=== PATIENT | female | born 1985 | race African-American/Black ===

== ENCOUNTER 2016-09-18 03:02 | Emergency (ER) | payer OTHER ==
--- NOTE | ~2016-09-18 | US67 ---
[facility] A Service of [facility] & [facility] / [facility] RADIOLOGY TEXT RESULTS PATIENT: TEZ MILLIGAN LOCATION: [facility] : [birth year] UNIT #: [id number] AGE: [address]: Umer Diaz MD SEX: F ORDER DR: [id number] [facility] [address] [place], [place] [address] [id number] E MR#: [id number] Acc #: [id number] NAME: TEZ MILLIGAN : 1985 SEX: F STUDY DATE/TIME: 09/18/2016 7:43 UNIT: [facility] ROOM: STUDY DESCRIPTION: Gallbladder Attending Physician: Umer Diaz M.D. Ordering Physician: Edson Friedman Aprn Primary Care Physician: Primary Care Physician No MEDICAL IMAGING REPORT This report is preliminary unless electronic signature is present EXAM Gallbladder ultrasound HISTORY Pain since this morning. Pain localized to right upper quadrant. Right upper quadrant ultrasound performed. Comparison to a CT examination from earlier on same date. Pancreas poorly visualized secondary to overlying bowel gas obscuration. The pancreas appeared unremarkable on earlier CT examination. The liver appears within normal limits of size, contour and echotexture. The portal vein is patent with normal direction of flow. Liver measures about 15.17 cm in craniocaudal extent. The right kidney measures 10.05 cm in greatest length. There is no hydronephrosis or nephrolithiasis. No cystic or solid mass lesion and no perinephric fluid collection suggested. The gallbladder contains multiple shadowing gallstones. No pericholecystic fluid or gallbladder wall thickening suggested. The common bile duct measures 4 mm in diameter. There is no intrahepatic biliary ductal dilatation. There is no indication of acute cholecystitis on basis of this examination. The gallbladder does not appear pathologically dilated. Please see CT for additional assessment. IMPRESSION 1. Liver and right kidney normal in appearance. 2. Multiple shadowing gallstones. Gallbladder does not appear pathologically dilated and there is no compelling ultrasound indication of acute cholecystitis. No gallbladder wall thickening or pericholecystic fluid. 3. No biliary ductal dilatation. 4. Visualized pancreas unremarkable but much of pancreas obscured by bowel gas artifact. Pancreas appeared unremarkable on earlier CT examination today. Please see that study for additional assessment. [facility] A Service of [facility] & [facility] / [facility] RADIOLOGY TEXT RESULTS PATIENT: TEZ MILLIGAN [id number] : [birth year] UNIT #: [id number] AGE: [address]: Umer Diaz MD SEX: F ORDER DR: Dictated by... Milton Bashir M.D. THIS IS AN ELECTRONICALLY VERIFIED REPORT Milton Bashir M.D. at 09/18/2016 9:09 AM Silvio TD: 09/18/2016 08:15 JOB #: [id number] MEDICAL IMAGING REPORT Page 1 of 1 COPY
--- NOTE | ~2016-09-18 | EKG ---
PATIENT: TEZ MILLIGAN UNIT #: [id number] Ventricular Rate: 72 BPM Atrial Rate: 72 BPM P-R Interval: 134 ms QRS Duration: 86 ms Q-T Interval: 378 ms QTC Calculation(Bezet): 413 ms P Hamlin: -11 degrees Calculated R Hamlin: 49 degrees Calculated T Hamlin: 22 degrees Diagnosis Line: Normal sinus rhythm Diagnosis Line: Normal ECG Diagnosis Line: No previous ECGs available Diagnosis Line: Confirmed by JAILENE LAU MD ([id number]) on Diagnosis Line: 09/18/2016 4:37:22 PM INTERPRETING MD: JUDI DALE
--- NOTE | ~2016-09-18 | CT2 ---
[facility] A Service of [facility] RADIOLOGY TEXT RESULTS PATIENT: TEZ MILLIGAN LOCATION: [facility] : 87 UNIT #: [id number] AGE: [address]: Umer Diaz MD SEX: F ORDER DR: [id number] [facility] [address] [place], [place] [address] [id number] E MR#: [id number] Acc #: [id number] NAME: TEZ MILLIGAN : 1985 SEX: F STUDY DATE/TIME: 09/18/2016 4:28 UNIT: [facility] ROOM: STUDY DESCRIPTION: CT Abd and Pelv W Cont Attending Physician: Edson Friedman Aprn Ordering Physician: Edson Friedman Aprn Primary Care Physician: Primary Care Physician No MEDICAL IMAGING REPORT This report is preliminary unless electronic signature is present EXAM CT abdomen and pelvis with contrast 09/18/2016 HISTORY 31-year-old female with pain on the top of the right side abdomen underneath the breast today. Nausea, vomiting. COMPARISON CT abdomen and pelvis with contrast 06/14/2016. PROCEDURE 5 mm axial images from the lung bases through the lesser trochanters after intravenous contrast administration. Enteric contrast was not administered. Sagittal and coronal reformatted images were obtained. This CT examination was performed with one or more of the following radiation dose reduction techniques: automatic exposure control, adjustment of mA and/or kV according to patient size, and iterative reconstruction. FINDINGS ABDOMEN: Lung bases are free of consolidation. Heart size is normal. There is mild gallbladder distension but no pericholecystic inflammatory change is seen and the gallbladder has a similar appearance to the previous exam. No gallstones are identified. No biliary dilation is evident. Spleen, pancreas, adrenals and kidneys are normal. The appendix is normal. Limited evaluation of bowel due to lack of enteric contrast but no focal bowel inflammation is seen. PELVIS: Left ovarian cyst measures 2.1 cm. Right ovarian cyst described on a previous study appears resolved. Uterus, urinary bladder and rectum are normal. No pelvic adenopathy or free fluid is identified. Osseous structures appear within normal limits. [facility] A Service of [facility] & [facility] RADIOLOGY TEXT RESULTS PATIENT: TEZ MILLIGAN LOCATION: [facility] : 87 UNIT #: [id number] AGE: [address]: Umer Diaz MD SEX: F ORDER DR: IMPRESSION 1. 2.1 cm left ovarian cyst. Previously described right ovarian cyst has resolved. 2. There is mild gallbladder distension but no pericholecystic inflammation or biliary dilation or gallstones are identified. This has a similar appearance to the previous examination. 3. The appendix is normal. 4. The remainder of the examination is within normal limits. Dictated by... Stephanie Contreras M.D. THIS IS AN ELECTRONICALLY VERIFIED REPORT Stephanie Contreras M.D. at 09/18/2016 9:58 PM EDIE/sugey TD: 09/18/2016 06:17 JOB #: [id number] MEDICAL IMAGING REPORT Page 1 of 1 COPY
[2016-09-18 03:15] LABS: BASOPHIL% 0.2 % (0-2.5); EOSINOPHIL# 0.1 X10e3 (0-0.7); EOSINOPHIL% 0.6 % (0.0-7.0); HEMATOCRIT 41.2 % (35.0-45.0); HEMOGLOBIN 13.6 gm/dL (12.0-16.0); LYMPHOCYTE# 3.1 X10e3 (1.0-3.5); LYMPHOCYTE% 29.2 % (17.0-45.0); MEAN CELL VOLUME 90.7 FL (83-96); MEAN CORPUSCULAR HGB CONC 33.1 g/dL (30-36); MEAN PLATELET VOLUME 8.2 FL (6.5-11.5); MONOCYTE% 9.9 % (3.0-12.0); NEUTROPHIL# 6.3 X10e3 (1.5-7.1); NEUTROPHIL% 60.1 % (40-75); PLATELET COUNT 267 X10e3 (140-420); RED BLOOD COUNT 4.54 X10e (3.90-5.30); RED CELL DISTRIBUTION WIDTH 13.4 % (11.0-15.5); WHITE BLOOD COUNT 10.5 X10e3 (4.0-10.5)
[2016-09-18 03:19] LABS: DIFF IND NO
[2016-09-18 03:42] LABS: ALBUMIN SERUM 3.6 g/dL (3.5-5.0); BILIRUBIN, DIRECT 0.1 mg/dL (0.0-0.2); BILIRUBIN,INDIRECT 0.4 mg/dL (0.0-0.9); BILIRUBIN,TOTAL 0.5 mg/dL (0.2-2.0); BUN/CREATININE RATIO 18.75; CALCIUM SERUM 8.3 mg/dL (8.4-10.2); CREATININE SERUM 0.8 mg/dL (0.6-1.4); GLOM FILT RATE Estimated 114.8 mL/min (>60); POTASSIUM 3.9 mmol/L (3.5-5.1); PROTEIN TOTAL SERUM 7.2 g/dL (6.0-8.3)
[2016-09-18 04:26] LABS: URINE SOURCE CLEAN CATCH
[2016-09-18 04:31] LABS: URINE APPEARANCE CLEAR; URINE BILIRUBIN NEG (NEG); URINE BLOOD NEG (NEG); URINE COLOR YELLOW; URINE GLUCOSE NEG (NEG); URINE KETONE NEG (NEG); URINE LEUKOCYTE ESTERASE 1+ (NEG); URINE NITRATE NEG (NEG); URINE PROTEIN NEG (NEG); URINE SPECIFIC GRAVITY 1.027 (1.003-1.035)
[2016-09-18 04:34] LABS: URBCS1 AUWI 0-2 /[HPF] (0-2); URINE BACTERIA AUWI NEG (NEGATIVE); URINE SQUAMOUS EPITHELIAL CELL FEW /[HPF]
[2016-09-18 04:38] LABS: CULTURE INDICATED? NO
== END 2016-09-18 09:10 | disposition home or self-care (01) ==
LOC: CED 03:02
PROVIDERS: Nurse Practitioner Family
DX: R10.11 Right upper quadrant pain (principal); R11.2 Nausea with vomiting, unspecified; F17.200 Nicotine dependence, unspecified, uncomplicated
CPT/HCPCS: 36415; 74177; 76705; 80048; 80076; 81003; 82150; 83690; 84703; 85025; 93005; 96361; 96374; 96375; 99284; J2270; J2405; Q9967